=== PATIENT | female | born 1990 | race Caucasian/White ===

== ENCOUNTER → 2018-09-17 13:51 | Outpatient (CLI) | payer BC, SELFPAY ==
[2018-09-23 10:56] LABS: HPV Reflexed? NOT INDICATED
== END ==
PROVIDERS: Family Provider Family Medicine; PCP Family Medicine; Referring Provider Obstetrics & Gynecology; Visit Provider Obstetrics & Gynecology
DX: Z12.4 Encounter for screening for malignant neoplasm of cervix (principal)
CPT/HCPCS: 88175; G0145

== ENCOUNTER → 2020-10-06 15:01 | Outpatient (CLI) | payer OTHER, SELFPAY ==
[2019-12-14 08:56] VITALS: BMI 31.6
== END ==
PROVIDERS: PCP Family Medicine; Visit Provider Family Medicine
DX: B34.9 Viral infection, unspecified (principal)
CPT/HCPCS: 87635; U0003

== ENCOUNTER → 2020-10-18 16:12 | Outpatient (CLI) | payer OTHER, SELFPAY ==
[2019-12-14 08:56] VITALS: BMI 31.6
== END ==
PROVIDERS: PCP Family Medicine; Referring Provider Family Medicine; Visit Provider Family Medicine
DX: U07.1 COVID-19 (principal)
CPT/HCPCS: 87635; U0003

== ENCOUNTER → 2020-12-15 12:42 | Outpatient (CLI) | payer OTHER, SELFPAY ==
[2020-12-15 09:07] VITALS: BMI 33.7
[2020-12-19 16:21] LABS: HPV Reflexed? NOT INDICATED
== END ==
PROVIDERS: PCP Family Medicine; Referring Provider Obstetrics & Gynecology; Visit Provider Obstetrics & Gynecology
DX: Z12.4 Encounter for screening for malignant neoplasm of cervix (principal)
CPT/HCPCS: 88175; G0145

== ENCOUNTER → 2021-03-14 17:16 | Outpatient (CLI) | payer OTHER, SELFPAY ==
[2020-12-15 09:07] VITALS: BMI 33.7
--- NOTE | 2021-03-14 17:19 | RAD_ITS ---
STUDY: X-RAY - LEFT TIBIA AND FIBULA REASON FOR EXAM: Left ankle pain extending proximally into the left leg, fall 5 days ago. TECHNIQUE: 2 view(s) of the tibia and fibula were obtained. COMPARISON: None. FINDINGS: Normal visualized tibia. 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 There is soft tissue swelling at the ankle. RAD/Tibia & Fibula 2 Views IMPRESSION: Soft tissue swelling at the ankle. 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 Electronically Signed: Alexandr Strauss MD at 8:15 EDT Tel , Service support ,
--- NOTE | 2021-03-14 17:19 | RAD_ITS ---
STUDY: X-RAY - LEFT ANKLE REASON FOR EXAM: Left ankle/foot pain, left ankle injury from a fall 5 days ago with swelling and bruising. TECHNIQUE: 3 view(s) of the ankle. COMPARISON: None. FINDINGS: Normal visualized distal tibia. 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 Normal medial and lateral malleoli. Normal tibiotalar articulation and ankle mortise. Normal visualized talus and calcaneus. The visualized subtalar, talonavicular, calcaneocuboid and tarsal articulations are normal. There is soft tissue swelling, especially over the lateral malleolus. RAD/Ankle min 3 Views IMPRESSION: Soft tissue swelling. 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 No demonstrated fracture. Electronically Signed: Alexandr Strauss MD at 11:56 EDT Tel , Service support ,
== END ==
PROVIDERS: PCP Family Medicine; Referring Provider Family Medicine; Visit Provider Family Medicine
DX: M25.572 Pain in left ankle and joints of left foot (principal)
CPT/HCPCS: 73590; 73610

== ENCOUNTER 2021-12-07 16:13 | Outpatient (CLI) | payer OTHER, SELFPAY ==
[2021-12-07 16:37] LABS: Absolute Lymphocyte Count 2.45 X10^3/uL (0.83-4.51); Absolute Neutrophil Count 6.8 X10^3/uL (2.0-7.7); Basophil# 0.04 X10^3/uL; Basophil% 0.4 % (0-1); Eosinophil# 0.24 X10^3/uL; Eosinophils% 2.3 % (0-5); Hematocrit 41.3 % (37-47); Hemoglobin 14.6 g/dL (12.0-15.0); Lymphocyte # 2.45 X10^3/ul (0.83-4.51); Lymphocyte % 23.6 % (19-41); Mean Corp Hgb Conc 35.4 g/dL (32-36); Mean Corpuscular Hgb 31.9 pg (27.0-32.0); Mean Corpuscular Volume 90.2 fL (81-99); Mean Platelet Vol. 9.2 fl (6.2-12.0); Monocyte# 0.81 X10^3/uL; Monocyte% 7.8 % (0-10); NRBC Flagged by Analyzer 0 % (0-5); Neutrophil # 6.81 X10^3/uL (2.7-7.7); Neutrophil % 65.4 % (47-70); Platelet Count 352 K/mm3 (150-450); RBC Distribution Width CV 11.9 % (11.6-14.6); RBC Distribution Width SD 39.1 fl (35.1-43.9); Red Blood Count 4.58 M/mm3 (4.2-5.4); White Blood Count 10.4 K/mm3 (4.4-11.0)
[2021-12-07 17:21] LABS: Glucose Challenge Gest 1H 50g 105 mg/dL (70-140)
[2021-12-07 17:42] LABS: Amphetamine Urine VISTA NEGATIVE (<1000 ng/mL); Barbiturate Urine VISTA NEGATIVE (< 200 ng/mL); Benzodiazepine Urine VISTA NEGATIVE (< 200 ng/mL); Cocaine Urine VISTA NEGATIVE (< 300 ng/mL); Ecstacy Urine VISTA NEGATIVE (< 500 ng/mL); Methadone Urine VISTA NEGATIVE (< 300 ng/mL); PCP Urine VISTA NEGATIVE (< 25 ng/mL); THC Urine VISTA NEGATIVE (< 50 ng/mL); Vista UDS pH Range 6
[2021-12-08 07:32] LABS: HIV - WCH Non-Reactive (Nonreactive); Hepatitis B Surface Antigen Non-Reactive (Nonreactive); Hepatitis C Antibody Non-Reactive (Nonreactive); Rubella IgG Equiv (Nonreactive); Syphilis Antibodies Non-reactive
[2021-12-11 18:07] LABS: Chlamydia By Nucleic Acid AMP Negative (Negative)
[2021-12-11 18:40] LABS: Gonococcus By Nucleic Acid AMP Negative (Negative)
== END 2021-12-07 23:59 | disposition short-term general hospital (02) ==
LOC: LAB 16:14
PROVIDERS: PCP Family Medicine; Visit Provider Obstetrics & Gynecology
DX: Z34.90 Encounter for supervision of normal pregnancy, unspecified, unspecified trimester (principal)
CPT/HCPCS: 36415; 80307; 82950; 85025; 86703; 86762; 86780; 86803; 86850; 86900; 86901; 87086; 87088; 87340; 87491; 87591

== ENCOUNTER → 2022-04-26 | Outpatient (CLI) | payer OTHER, SELFPAY ==
[2022-04-26 14:26] LABS: Absolute Lymphocyte Count 1.91 X10^3/uL (0.83-4.51); Absolute Neutrophil Count 6.3 X10^3/uL (2.0-7.7); Basophil# 0.04 X10^3/uL; Basophil% 0.4 % (0-1); Eosinophil# 0.37 X10^3/uL; Eosinophils% 3.8 % (0-5); Hematocrit 33.3 % (37-47); Hemoglobin 11.5 g/dL (12.0-15.0); Lymphocyte # 1.91 X10^3/ul (0.83-4.51); Lymphocyte % 19.8 % (19-41); Mean Corp Hgb Conc 34.5 g/dL (32-36); Mean Corpuscular Hgb 31.6 pg (27.0-32.0); Mean Corpuscular Volume 91.5 fL (81-99); Mean Platelet Vol. 9.8 fl (6.2-12.0); Monocyte# 0.86 X10^3/uL; Monocyte% 8.9 % (0-10); NRBC Flagged by Analyzer 0 % (0-5); Neutrophil # 6.34 X10^3/uL (2.7-7.7); Neutrophil % 65.9 % (47-70); Platelet Count 270 K/mm3 (150-450); RBC Distribution Width CV 14.1 % (11.6-14.6); RBC Distribution Width SD 47.4 fl (35.1-43.9); Red Blood Count 3.64 M/mm3 (4.2-5.4); White Blood Count 9.6 K/mm3 (4.4-11.0)
[2022-04-26 14:58] LABS: Glucose Challenge Gest 1H 50g 88 mg/dL (70-140)
== END | disposition home or self-care (01) ==
LOC: LAB 13:32
PROVIDERS: PCP Family Medicine; Visit Provider Nurse Practitioner Women's Health
DX: Z13.1 Encounter for screening for diabetes mellitus (principal)
CPT/HCPCS: 36415; 82950; 85025

== ENCOUNTER → 2022-06-25 | Outpatient (CLI) | payer OTHER, SELFPAY | END | disposition home or self-care (01) | LOC: LABSPEC 06-26 09:24 | PROVIDERS: PCP Family Medicine; Referring Provider Nurse Practitioner Women's Health; Visit Provider Nurse Practitioner Women's Health | DX: Z34.90 Encounter for supervision of normal pregnancy, unspecified, unspecified trimester (principal) | CPT/HCPCS: 87081 ==

== ENCOUNTER 2022-07-23 07:22 | Inpatient (IN) | payer OTHER, SELFPAY ==
[2022-07-23] VITALS (81 sets, daily range): BP systolic 86–150; BP diastolic 51–86; PULSE 75–229; TEMP 36.1–36.9; O2SAT 76–100; BMI 36.3
[2022-07-23] MEDS: 0.9% Normal Saline Single 100 ML IV.SOLN. INTRA-UTER (07:59)
[2022-07-23] MEDS: Lactated Ringers 1,000 ML 50 ML IV (08:00)
[2022-07-23] MEDS: Oxytocin 30 units/NS 500 ml 30 UNITS/500 ML IV.SOLN IV (08:00)
[2022-07-23 08:04] LABS: Absolute Lymphocyte Count 2.11 X10^3/uL (0.83-4.51); Absolute Neutrophil Count 5.4 X10^3/uL (2.0-7.7); Basophil# 0.04 X10^3/uL; Basophil% 0.5 % (0-1); Eosinophil# 0.34 X10^3/uL; Eosinophils% 3.9 % (0-5); Hematocrit 35.1 % (37-47); Hemoglobin 12.3 g/dL (12.0-15.0); Lymphocyte # 2.11 X10^3/ul (0.83-4.51); Mean Corpuscular Hgb 31.8 pg (27.0-32.0); Mean Corpuscular Volume 90.7 fL (81-99); Mean Platelet Vol. 10.3 fl (6.2-12.0); Monocyte# 0.78 X10^3/uL; Monocyte% 8.9 % (0-10); NRBC Flagged by Analyzer 0 % (0-5); Neutrophil % 61.4 % (47-70); Platelet Count 206 K/mm3 (150-450); RBC Distribution Width CV 14.2 % (11.6-14.6); RBC Distribution Width SD 46.5 fl (35.1-43.9); Red Blood Count 3.87 M/mm3 (4.2-5.4); White Blood Count 8.8 K/mm3 (4.4-11.0)
[2022-07-23] MEDS: LACTATED RINGERS 500 ML 999 ML IV (12:01)
[2022-07-23] MEDS: fentaNYL-bupivacaine (epidural) 100 ML BAG EPIDURAL ×2 (13:12→18:21)
[2022-07-23] MEDS: Lactated Ringers 1,000 ML 200 ML IV (16:48)
--- NOTE | 2022-07-23 20:25 | HP.PCM.OB_ITS ---
HPI - General General Date of Admission: 07/23/22 HPI Narrative MARINA CORNELL, is a 32 F who presents for IOL sec postdates 41 weeks Maternal Data Information BRENDA Calculator Estimated Delivery Date Method Current WG Current Estimate 07/16/22 LMP (Certain) 41w 0d PFSH PFSH Medical History Anxiety Encounter for insertion of mirena IUD (~2014) Marginal placenta previa Home Medications loratadine 10 mg tablet (Claritin) 10 mg PO DAILY 09/17/18 [History Last Taken Unknown] multivitamin no.47-iron fum 27 mg-folate no.1 1 mg-dha 300 mg capsule (PNV-DHA) cap PO 11/21/21 [History Last Taken Unknown] sertraline 100 mg tablet 100 mg PO DAILY 90 days #90 tabs 12/08/21 [Rx Last Taken Unknown] breast pump #1 ea 07/02/22 [Rx Last Taken Unknown] Allergy/AdvReac Type Severity Reaction Status Date / Time No Known Allergies Allergy Verified 07/20/22 15:24 Family History Father Hyperlipemia Mother Hypertension Surgical History History of wisdom tooth extraction, class IV edentulism Social History adopted: No household members: spouse housing: house number of children: 0 current occupational status: employed current occupation: [employer] current occupational exposures/hazards: No pets and animals: No history of recent travel: No Smoking Status: Never smoker second hand exposure: No alcohol intake: current alcohol intake frequency: a few times a week substance use type: does not use caffeine: No what type of physical activity do you participate in: none seatbelt use: always do you feel safe at home: Yes additional social history: - [employer] Patient is communications strategist History 1 Elective abortions Hx Para 0 Spontaneous abortions Hx # Term Pregnancies Ectopic pregnancies Hx # Pregnancies Multiple births # of living children Visit Details Expected Delivery Route/Plan Labor Preferences- CB/BF classes: yes labor support person: Capo labor intervention preferences: [] pain management options preferred: epidural if needed cut cord/dad catch: cord : yes PP control planned: discussed IUD discussed possible routes of delivery and associated risks: [] special requests: [] Plans Covid status: vaccinated Flu vaccine: declined Tdap vaccine:given Rhogam: NA LARC form signed: yes movement and labor precautions reviewed. Problem list reviewed and updated with the most current plan of care details and appropriate orders placed. Relevant counseling for the gestational age provided. Continue routine care and follow up unless otherwise noted in visit notes/problem list details OB Flowsheet Initial Weight: Not Recorded Date -?-?-?-?-?-?-?-?-?-?-?-?- EGA Weight BP Urine Prot -?-?-?-?-?--?-?-?-?-?-?-?- Glucose FHR FuHt Pres Dilation -?-?-?-?-?-?-?-?-?-?-?--?- Effaced St Visit Note 12/07/21 -?-?-?-?-?-?-?-?-?-?-?-?- 8w 3d 205 lb 6 oz 110/80 -?-?-?-?-?-?-?-?-?-?-?-?- 160 -?-?-?-?-?-?-?-?-?-?-?-?- JV- crl consiste nt with LMP. FOB here and is deaf but reads lips. this is a genetic disorder that they have not decided on testing yet 01/05/22 -?-?-?-?-?-?-?-?-?-?-?-?- 12w 4d 204 lb 128/80 Negative -?-?-?-?-?-?-?-?-?-?-?-?- Negative 160 -?-?-?-?-?-?-?-?-?-?-?-?- SM- no vb britney ng declined genetic screening 02/02/22 -?-?-?-?-?-?-?-?-?-?-?-?- 16w 4d 205 lb 4 oz 110/70 Nega tive -?-?-?-?-?-?-?-?-?-?-?-?- Negative 150 -?-?-?-?-?-?-?-?-?-?-?-?- SM- no vb lof cr amping 03/02/22 -?-?-?-?-?-?-?-?-?-?-?-?- 20w 4d 206 lb 100/76 Negative -?-?-?-?-?-?-?-?-?-?-?-?- Negative 145 -?-?-?-?-?-?-?-?-?-?-?-?- JV- marginal pre via. rpt scan at 28 weeks 03/30/22 -?-?-?-?-?-?-?-?-?-?-?-?- 24w 4d 207 lb 90/62 -?-?-?-?-?-?-?-?-?-?-?-?- 145 -?-?-?-?-?-?-?-?-?-?-?-?- SM- no vb lof go od fm no reuglar ctx 04/26/22 -?-?-?-?-?-?-?-?-?-?-?-?- 28w 3d 213 lb 100/60 -?-?-?-?-?-?-?-?-?-?-?-?- 143 30 -?-?-?-?-?-?-?-?-?-?-?-?- MH-No VB, LOF. G ood FM. 28 wk labs, larc. Will consider tdap. 05/10/22 -?-?-?-?-?-?-?-?-?-?-?-?- 30w 3d 213 lb 6 oz 98/72 Nega tive -?-?-?-?-?-?-?-?-?-?-?-?- Negative 135 30 -?-?-?-?-?-?-?-?-?-?-?-?- JV- no loss of f veena, vaginal bleeding, or dec fm. 05/24/22 -?-?-?-?-?-?-?-?-?-?-?-?- 32w 3d 213 lb 91/65 -?-?-?-?-?-?-?-?-?-?-?-?- 140 32 -?-?-?-?-?-?-?-?-?-?-?-?- SM- no vb lof go od fm no regualr ctx having pupps lesions- medrol dose pack ordered 06/08/22 -?-?-?-?-?-?-?-?-?-?-?-?- 34w 4d 212 lb 2 oz 110/70 Nega tive -?-?-?-?-?-?-?-?-?-?-?-?- Negative 140 35 -?-?-?-?-?-?-?-?-?-?-?-?- SM- no vb lof go od fm no regular ctx still itching. 06/25/22 -?-?-?-?-?-?-?-?-?-?-?-?- 37w 0d 212 lb 107/75 Negative -?-?-?-?-?-?-?-?-?-?-?-?- Negative 149 37 Cephalic 1 -?-?-?-?-?-?-?-?-?-?-?-?- 30 -3 MH-NO Vb, LOF. Good FM. No CTX. GBS done 06/29/22 -?-?-?-?-?-?-?-?-?-?-?-?- 37w 4d 215 lb 106/78 Negative -?-?-?-?-?-?-?-?-?-?-?-?- Negative 140 38 Cephalic 1 -?-?-?-?-?-?-?-?-?-?-?-?- SM- no vb lof go od fm no regular ctx 07/06/22 -?-?-?-?-?-?-?-?-?-?-?-?- 38w 4d 210 lb 4 oz 129/78 Nega tive -?-?-?-?-?-?-?-?-?-?-?-?- Negative 136 Cephalic 1 -?-?-?-?-?-?-?-?-?-?-?-?- 60 -3 JV- no lof , vaginal bleeding, or dec fm. planning to have and sister in law in labor. 07/13/22 -?-?-?-?-?-?-?-?-?-?-?-?- 39w 4d 212 lb 104/80 Negative -?-?-?-?-?-?-?-?-?-?-?-?- Negative 135 39 Cephalic 1 .5 -?-?-?-?-?-?-?-?-?-?-?-?- 60 -2 SM- no vb lof good fm no regular ctx membranes swept discussed IOL 41. 07/20/22 -?-?-?-?-?-?-?-?-?-?-?-?- 40w 4d 209 lb 6 oz 106/70 Nega tive -?-?-?-?-?-?-?-?-?-?-?-?- Negative 135 40 Cephalic 1 .5 -?-?-?-?-?-?-?-?-?-?--?-?- 60 -2 SM- plan I OL 41 SM- plan IOL 41 no vb lof go od fm no regular ctx 07/23/22 -?-?-?-?-?-?-?-?-?-?-?-?- 41w 0d 212 lb 1.355 oz 110/ 57 106/74 113/80 115/73 147/74 118/76 119/82 125/86 124/85 127/75 128/80 114/70 119/67 118/69 129/77 86/52 88/51 117/72 97/58 102/65 108/74 107/68 120/77 108/57 100/59 -?-?-?-?-?-?-?-?-?--?-?-?- -?-?-?-?-?-?-?-?-?-?-?-?- NST FHR Rate Baby A Baseline: 130 Variability:: Moderate Accelerations:: 15 x 15 Decelerations:: None NST Reactive:: Yes FHR Category:: Category I Uterine Activity:: irregular ROS Constitutional Constitutional: Reports systems reviewed and no addt'l complaints, except as documented Eyes Eyes: Denies change in vision ENT HEENT: Reports systems reviewed and no addt'l complaints, except as documented; Denies headache(s) Cardiovascular Cardiovascular: Reports systems reviewed and no addt'l complaints, except as documented; Denies chest pain or dyspnea Respiratory/Chest Respiratory/Chest: Reports systems reviewed and no addt'l complaints, except as documented Gastrointestinal Gastrointestinal: Reports systems reviewed and no addt'l complaints, except as documented; Denies abdominal pain Genitourinary Genitourinary: Reports systems reviewed and no addt'l complaints, except as documented, contractions Details: present (irregular) and movement Details: present; Denies dysuria or genital lesions Musculoskeletal Musculoskeletal: Reports systems reviewed and no addt'l complaints, except as documented Neurologic Neurologic: Reports systems reviewed and no addt'l complaints, except as documented Endocrine Endocrinology: Reports systems reviewed and no addt'l complaints, except as documented Vital Signs Vital Signs Vital Signs: 07/23/22 07:46 07/23/22 07:46 07/23/22 07:46 Temperature Temperature Source Temporal Pulse Rate 98 Blood Pressure 110/57 L BP Systolic 110 BP Diastolic 57 Pulse Ox 07/23/22 07:46 07/23/22 09:08 07/23/22 09:08 Temperature 97.6 F L Temperature Source Pulse Rate 91 Blood Pressure 106/74 BP Systolic 106 BP Diastolic 74 Pulse Ox 07/23/22 10:14 07/23/22 10:14 07/23/22 11:08 Temperature Temperature Source Pulse Rate 84 Blood Pressure 113/80 115/73 BP Systolic 113 115 BP Diastolic 80 73 Pulse Ox 07/23/22 11:08 07/23/22 11:08 07/23/22 11:08 Temperature 97.3 F L Temperature Source Temporal Pulse Rate 116 H Blood Pressure BP Systolic BP Diastolic Pulse Ox 07/23/22 12:41 07/23/22 12:41 07/23/22 12:40 Temperature Temperature Source Pulse Rate 98 Blood Pressure 147/74 H BP Systolic 147 BP Diastolic 74 Pulse Ox 100 07/23/22 12:46 07/23/22 12:46 07/23/22 12:45 Temperature Temperature Source Pulse Rate 110 H Blood Pressure 118/76 BP Systolic 118 BP Diastolic 76 Pulse Ox 98 07/23/22 12:47 07/23/22 12:47 07/23/22 12:50 Temperature Temperature Source Pulse Rate 93 115 H Blood Pressure 119/82 H BP Systolic 119 BP Diastolic 82 Pulse Ox 07/23/22 12:50 07/23/22 12:51 07/23/22 12:51 Temperature Temperature Source Pulse Rate 111 H Blood Pressure 125/86 H BP Systolic 125 BP Diastolic 86 Pulse Ox 98 07/23/22 12:55 07/23/22 12:55 07/23/22 12:55 Temperature Temperature Source Pulse Rate 103 H Blood Pressure 124/85 H BP Systolic 124 BP Diastolic 85 Pulse Ox 97 07/23/22 13:00 07/23/22 13:00 07/23/22 13:02 Temperature Temperature Source Pulse Rate 108 H Blood Pressure 127/75 H BP Systolic 127 BP Diastolic 75 Pulse Ox 97 07/23/22 13:02 07/23/22 13:05 07/23/22 13:05 Temperature Temperature Source Pulse Rate 100 104 H Blood Pressure 128/80 H BP Systolic 128 BP Diastolic 80 Pulse Ox 07/23/22 13:05 07/23/22 13:05 07/23/22 13:11 Temperature Temperature Source Pulse Rate 107 H Blood Pressure 114/70 BP Systolic 114 BP Diastolic 70 Pulse Ox 98 07/23/22 13:11 07/23/22 13:10 07/23/22 13:15 Temperature Temperature Source Pulse Rate 103 H 96 Blood Pressure BP Systolic BP Diastolic Pulse Ox 99 07/23/22 13:15 07/23/22 13:15 07/23/22 13:16 Temperature Temperature Source Temporal Pulse Rate Blood Pressure 119/67 BP Systolic 119 BP Diastolic 67 Pulse Ox 99 07/23/22 13:16 07/23/22 13:15 07/23/22 13:21 Temperature 97.6 F L Temperature Source Pulse Rate 102 H Blood Pressure 118/69 BP Systolic 118 BP Diastolic 69 Pulse Ox 07/23/22 13:21 07/23/22 13:20 07/23/22 13:25 Temperature Temperature Source Pulse Rate 100 103 H Blood Pressure BP Systolic BP Diastolic Pulse Ox 99 07/23/22 13:25 07/23/22 13:31 07/23/22 13:31 Temperature Temperature Source Pulse Rate 96 Blood Pressure 129/77 H BP Systolic 129 BP Diastolic 77 Pulse Ox 99 07/23/22 13:30 08/22/22 13:35 07/23/22 13:35 Temperature Temperature Source Pulse Rate 92 Blood Pressure BP Systolic BP Diastolic Pulse Ox 99 99 07/23/22 13:40 07/23/22 13:40 07/23/22 13:45 Temperature Temperature Source Pulse Rate 100 92 Blood Pressure BP Systolic BP Diastolic Pulse Ox 99 07/23/22 13:45 07/23/22 13:50 07/23/22 13:50 Temperature Temperature Source Pulse Rate 86 Blood Pressure BP Systolic BP Diastolic Pulse Ox 100 100 07/23/22 13:55 07/23/22 13:55 07/23/22 14:00 Temperature Temperature Source Pulse Rate 101 H 93 Blood Pressure BP Systolic BP Diastolic Pulse Ox 99 07/23/22 14:00 07/23/22 14:04 07/23/22 14:04 Temperature Temperature Source Pulse Rate 83 Blood Pressure 86/52 L BP Systolic 86 BP Diastolic 52 Pulse Ox 100 07/23/22 14:05 07/23/22 14:05 07/23/22 14:05 Temperature Temperature Source Pulse Rate 92 Blood Pressure 88/51 L BP Systolic 88 BP Diastolic 51 Pulse Ox 100 07/23/22 14:10 07/23/22 14:10 07/23/22 14:11 Temperature Temperature Source Pulse Rate 93 Blood Pressure 117/72 BP Systolic 117 BP Diastolic 72 Pulse Ox 99 07/23/22 14:11 07/23/22 15:10 07/23/22 15:10 Temperature Temperature Source Pulse Rate 75 86 Blood Pressure 97/58 L BP Systolic 97 BP Diastolic 58 Pulse Ox 07/23/22 15:09 07/23/22 15:07 07/23/22 15:07 Temperature 97.4 F L Temperature Source Temporal Pulse Rate Blood Pressure BP Systolic BP Diastolic Pulse Ox 78 07/23/22 16:06 07/23/22 16:06 07/23/22 16:59 Temperature Temperature Source Temporal Pulse Rate 85 Blood Pressure 102/65 BP Systolic 102 BP Diastolic 65 Pulse Ox 07/23/22 16:59 07/23/22 16:59 07/23/22 16:59 Temperature 97.6 F L Temperature Source Pulse Rate 92 Blood Pressure 108/74 BP Systolic 108 BP Diastolic 74 Pulse Ox 07/23/22 17:50 07/23/22 17:50 07/23/22 18:51 Temperature Temperature Source Pulse Rate 85 Blood Pressure 107/68 120/77 BP Systolic 107 120 BP Diastolic 68 77 Pulse Ox 07/23/22 18:51 07/23/22 19:26 07/23/22 19:26 Temperature Temperature Source Pulse Rate 83 91 Blood Pressure 108/57 L BP Systolic 108 BP Diastolic 57 Pulse Ox 07/23/22 19:25 07/23/22 19:26 07/23/22 19:26 Temperature 97.3 F L Temperature Source Pulse Rate Blood Pressure BP Systolic BP Diastolic Pulse Ox 99 100 07/23/22 19:26 07/23/22 20:08 07/23/22 20:08 Temperature Temperature Source Temporal Pulse Rate 114 H Blood Pressure 100/59 L BP Systolic 100 BP Diastolic 59 Pulse Ox 07/23/22 20:08 07/23/22 20:08 Temperature 97.7 F L Temperature Source Temporal Pulse Rate Blood Pressure BP Systolic BP Diastolic Pulse Ox Weight Weight: 212 lb 1.355 oz Body Mass Index (BMI) 36.3 Physical Exam Const alert, oriented x3, no apparent distress and healthy appearing HEENT normocephalic and moist oral mucous membranes Head and Scalp: atraumatic Neck full ROM, no lymphadenopathy, supple and thyroid normal General: trachea midline Lymph Lymphatic: no lymphadenopathy noted Chest inspection of chest normal Resp normal respiratory effort Cardio regular rate GI normal to inspection, nondistended, normoactive bowel sounds, soft to palpation and non-tender Inspection: gravid external exam normal Manual OB Exam: estimated gestational size appropriate, presentation cephalic, dilated, effaced and station Extremity normal to inspection General Extremity: Negative for edema Skin no rashes or lesions noted Neuro no focal motor deficits and deep tendon reflexes 2+ bilaterally Motor Exam: strength 5/5 throughout and clonus absent Psych mental status grossly normal Labs Labs Labs: Blood Type B POSITIVE Antibody Screen NEGATIVE Hct 35.1 % (37-47) L Hgb 12.3 g/dL (12.0-15.0) Pap Smear Negative Syphilis Total Ab Non-reactive Rubella IgG Antibody Equiv (Nonreactive) Hep Bs Antigen Non-Reactive (Nonreactive) Chlamydia DNA ([place]) Negative (Negative) Neisseria gonorrhoeae DNA ([place]) Negative (Negative) HIV 1&2 Antibody Non-Reactive (Nonreactive) Glucose 1 Hr 50 gm 88 mg/dL (70-140) Assessment & Plan (1) PUPP (pruritic urticarial papules and plaques of ): COMMENT: medrol dose pack (2) Rubella non-immune status, antepartum: COMMENT: encourage MMR (3) SND (sensory-neural deafness), asymmetrical: COMMENT: this is in FOB. 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 if baby boy then they are not worried. (4) Supervision of normal : QUALIFIERS: Normal : normal first Trimester: third trimester Qualified Code(s): Z34.03 - Encounter for supervision of normal first , third trimester COMMENT: PRR BRENDA: 07/16/22 reshma Culver Spouse: [employer] (5) : QUALIFIERS: Weeks of gestation: 40 weeks Qualified Code(s): Z3A.40 - 40 weeks gestation of COMMENT: GBS negative, anatomy nl, declined genetic and carrier (6) BMI 31.0-31.9,adult: COMMENT: nl GCT at NOB (7) Anxiety and depression: COMMENT: increase zoloft to 100mg, counseling resources provided. if no improvement recommend change to celexa or prozac. behavioral techniques discussed. stable (8) Post-dates : PLAN: Plan Patient presents IOL, plan management for with pit fb arom. Pain management: plans epidural. GBS negative. Management of any complications: none I have reviewed the [facility] and made any clinically relevant updates.
[2022-07-23] MEDS: Oxytocin 30 units/NS 500 ml 30 UNITS/500 ML IV.SOLN 334 UNITS IV (21:07)
[2022-07-23] MEDS: Methylergonovine 0.2 MG/ML Ampul IM (21:10)
[2022-07-23] MEDS: Carboprost Tromethamine 250 MCG/ML Ampul IM (21:13)
[2022-07-23] MEDS: miSOPROStol 200 MCG Tablet 1000 MCG RC (21:23)
[2022-07-23] MEDS: 0.9% Saline Lock 10 ML Syringe IV ×2 (21:34→21:49)
--- NOTE | 2022-07-23 21:35 | EX.PCM.OBRPT ---
Assessment & Plan (1) Anxiety and depression: COMMENT: increase zoloft to 100mg, counseling resources provided. if no improvement recommend change to celexa or prozac. behavioral techniques discussed. stable (2) BMI 31.0-31.9,adult: COMMENT: nl GCT at NOB (3) : QUALIFIERS: Weeks of gestation: 40 weeks Qualified Code(s): Z3A.40 - 40 weeks gestation of COMMENT: GBS negative, anatomy nl, declined genetic and carrier (4) Supervision of normal : QUALIFIERS: Normal : normal first Trimester: third trimester Qualified Code(s): Z34.03 - Encounter for supervision of normal first , third trimester COMMENT: PRR BRENDA: 07/16/22 boy Abiola Spouse: Capo (5) SND (sensory-neural deafness), asymmetrical: COMMENT: this is in FOB. 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 if baby boy then they are not worried. (6) Rubella non-immune status, antepartum: COMMENT: encourage MMR (7) PUPP (pruritic urticarial papules and plaques of ): COMMENT: medrol dose pack (8) Post-dates : Maternal Data Information BRENDA Calculator Estimated Delivery Date Method Current WG Current Estimate 07/16/22 LMP (Certain) 41w 0d Vaginal Delivery Operative Information Date of Procedure: 07/23/22 Pre-Operative Diagnosis: IAL Post-Operative Diagnosis: same Surgery / Procedure Performed: Spontaneous Vaginal Delivery Type of Anesthesia: Epidural Special Medications: pitocin methergine hemabate cytotec TXA Estimated Blood Loss: 800 Fluids Replaced: crystalloid Findings Description of Procedure: Patient began pushing and delivered the head in the AYSE presentation. The head was delivered atraumatically and a loose nuchal cord ?1 was identified and the delivered through without complication. The anterior and posterior shoulders delivered without complication followed by the rest of the and the infant was placed on the maternal abdomen. Delayed cord clamping was employed for approximately 60 seconds. Cord was clamped and cut and gentle traction was applied to the cord and the placenta delivered spontaneously immediately following it was noted to be intact with three-vessel cord. The perineum and vagina were inspected and noted to have a second degree laceration repaired in the usual fashion with 3-0 rapide. uterine atony encountered, treated with bimanual massage, methergine, hemabate, cytotec, TXA, and total EBL was 800. Patient and infant tolerated delivery well. Presentation: AYSE Amniotic Membrane Rupture Type: Artificial Amniotic Fluid Description: Clear Placental Delivery Description: Spontaneous Placenta Disposition: [facility] Cord Vessel Description: 3 Vessels Cord Entanglement: Around neck x 1, loose A Gender: Male Delayed Cord Clamping: Yes Post Vaginal Delivery Medications Given After Delivery: IV Pitocin, IM Methergin and IM Hemabate Episiotomy Description: None Laceration: Perineal Extension/lac and 2nd degree Complication Complications: - (mild hemorrhage) Procedures Urinary/Genital [id number]: [id number] Vaginal Delivery [facility]
--- NOTE | 2022-07-23 21:38 | DCINST_ITS ---
Discharge Instructions Diet Discharge Diet: No restrictions Activity Discharge Activity: Return to Normal Activity, May Drive, May Shower and May Take a Tub Bath (in 4 weeks) May resume sexual activity in: 6-8 weeks (after seen by OB provider) Weight Bearing Status: Full weight bearing Lifting Restrictions: none Dressing / Incision Call your doctor if you observe: Fever of 101 or Higher, Inability to urinate, Using more than 1 pad per hour (for more than 2 hours in a row or more), Shortness of breath, Dizziness, Chest pain and - (headache not controlled with tylenol, change in vision) Follow Up Care When: in 6 weeks for visit, call the office to make the appointment. If you had elevated blood pressures call the office to be seen within 1 week. Test Results: Test results from this visit will be discussed in further detail at your follow- up appointment, if applicable. Discharge Plan Admission Admit Date/Time: 07/23/22 07:22 Attending Provider: Rosa Calero Primary Care Provider: Reji Schmidt Discharge Orders/Prescriptions Prescriptions: No Action loratadine [Claritin] 10 mg tablet 10 mg PO DAILY PNV-DHA 27 mg iron-1 mg -300 mg capsule PO sertraline 100 mg tablet 100 mg PO DAILY 90 Days Qty: 90 4RF (DME) breast pump Device See Rx Instructions .ROUTE .MEDSUPPLY Qty: 1 0RF Rx Instructions: As directed Referrals / Follow Up: Reji Schmidt MD [Primary Care Provider] - Disposition Disposition (needs filled in before D/C Order can be placed): Home, Self Care
[2022-07-24] MEDS: Benzocaine/Lanolin/Aloe Vera 1 SPRAY EACH TOPICAL (00:03)
[2022-07-24] MEDS: 0.9% Saline Lock 10 ML Syringe IV (00:03)
[2022-07-24] MEDS: Naproxen 500 MG Tablet PO ×3 (00:04→15:51)
[2022-07-24 04:10] VITALS: BP 99/67; PULSE 83; RESP 16; TEMP 36.5
[2022-07-24] MEDS: Acetaminophen 500 MG Tablet 1000 MG PO ×2 (04:11→10:32)
[2022-07-24 04:41] LABS: Absolute Lymphocyte Count 1.78 X10^3/uL (0.83-4.51); Absolute Neutrophil Count 22.7 X10^3/uL (2.0-7.7); Basophil# 0.05 X10^3/uL; Basophil% 0.2 % (0-1); Eosinophil# 0.02 X10^3/uL; Eosinophils% 0.1 % (0-5); Hematocrit 31.8 % (37-47); Hemoglobin 11.1 g/dL (12.0-15.0); Lymphocyte # 1.78 X10^3/ul (0.83-4.51); Lymphocyte % 6.8 % (19-41); Mean Corp Hgb Conc 34.9 g/dL (32-36); Mean Corpuscular Hgb 31.8 pg (27.0-32.0); Mean Corpuscular Volume 91.1 fL (81-99); Mean Platelet Vol. 10.4 fl (6.2-12.0); Monocyte# 1.36 X10^3/uL; Monocyte% 5.2 % (0-10); NRBC Flagged by Analyzer 0 % (0-5); Neutrophil # 22.69 X10^3/uL (2.7-7.7); Neutrophil % 86.9 % (47-70); POSITIVE DIFFERENTIAL YES; Platelet Count 178 K/mm3 (150-450); RBC Distribution Width CV 14.1 % (11.6-14.6); RBC Distribution Width SD 46.5 fl (35.1-43.9); Red Blood Count 3.49 M/mm3 (4.2-5.4); White Blood Count 26.1 K/mm3 (4.4-11.0)
[2022-07-24 04:43] LABS: Differential Indicated SCAN CRITERIA MET
[2022-07-24 07:57] VITALS: BP 94/58; PULSE 79; RESP 15; TEMP 36.6
--- NOTE | 2022-07-24 08:33 | PCM.PN.OB ---
Subjective Subjective Patient doing well without complaints. Tolerating PO. Ambulating and voiding without difficulty. Feeding well. Denies chest pain, shortness of breath, calf pain/swelling, fevers, chills, lightheadedness. Objective Data Objective Data Vital Signs: Vital Signs Temp Pulse Resp BP Pulse Ox O2 Del Method 98 F 79 15 94/58 L 98 Room Air 07/24/22 07:57 07/24/22 07:57 07/24/22 07:57 07/24/22 07:57 07/23/22 23:21 07/24/22 04:10 Oxygen Delivery Method Room Air Weight: 212 lb 1.355 oz Body Mass Index (BMI) 36.3 Intake & Output: Intake and Output for Last 24 Hours 07/22/22 07/23/22 07/24/22 23:59 23:59 23:59 Intake Total 3217.43 / 3217.43 949.7 / 949.7 Output Total 1200 / 1200 1450 / 1450 Balance 43 / 43 -500.3 / -500.3 Lab / Micro Data Result Diagrams: 07/24/22 04:15 Labs: Laboratory Results - last 24 hr 07/23/22 07:40: Blood Type B POSITIVE, Antibody Screen NEGATIVE 07/24/22 04:15: WBC 26.1 H, RBC 3.49 L, Hgb 11.1 L, Hct 31.8 L, MCV 91.1, MCH 31.8, MCHC 34.9, RDW Std Deviation 46.5 H, RDW Coeff of Pearl 14.1, Plt Count 178, MPV 10.4, Immature Gran % (Auto) 0.800, Neut % (Auto) 86.9 H, Lymph % (Auto) 6.8 L, [place] % (Auto) 5.2, Eos % (Auto) 0.1, Baso % (Auto) 0.2, Absolute Neuts (auto) 22.7 H, Absolute Lymphs (auto) 1.78, Nucleated RBC % 0 Micro: Microbiology 07/23/22 08:05 Nasal Secretion SARS-CoV-2 Antigen (Rapid) - Final ROS Constitutional Constitutional: Denies chills, fatigue, fever(s), poor appetite or weakness Eyes Eyes: Denies blurry vision, change in vision, seeing flashes or spots in vision ENT HEENT: Denies dizziness, headache(s), loss taste/smell or sore throat Cardiovascular Cardiovascular: Denies chest pain, dizziness, dyspnea, irregular heart rhythm, palpitations or rapid heart rate Respiratory/Chest Respiratory/Chest: Denies chest tightness, cough, dyspnea or breast pain Gastrointestinal Gastrointestinal: Denies abdominal pain, constipation or vomiting Genitourinary Genitourinary: Denies dysuria or flank pain Musculoskeletal Musculoskeletal: Denies difficulty walking, joint pain, limited range of motion or numbness Neurologic Neurologic: Denies abnormal movements, abnormal speech, dizziness, numbness, seizure-like activity or syncope Psychiatric Psychiatric: Denies anxiety, behavioral changes, change in appetite, confusion, depression or suicidal thoughts Physical Exam Const alert, oriented x3 and no apparent distress General Appearance: cooperative and comfortable Resp normal respiratory effort Cardio regular rate GI normal to inspection, nondistended, normoactive bowel sounds GI Narrative: uterus is firm below umbilicus Palpation: soft Back/Spine no CVA tenderness and thoraco-lumbar ROM normal Extremity normal to inspection, no clubbing, cyanosis or edema, no calf tenderness and no pedal edema Psych mental status grossly normal, thought process normal, cooperative, affect normal, speech normal, activity/motor behavior normal, denies homicidal ideation and denies suicidal ideation Assessment & Plan (1) Rubella non-immune status, antepartum: COMMENT: encourage MMR (2) Vaginal delivery: COMMENT: SM IOL 41 boy danica PPH 800cc (3) atony of uterus with hemorrhage: PLAN: Plan s/p PPD # 1 1. routine post delivery care 2. breast feeding- support given 3. rh positive 4. rubella non-immune- plan for vaccine before discharge 5. will rpt cbc tomorrow
--- NOTE | 2022-07-24 10:22 | NURSING ---
1005 education on donor milk supplementation; plan of care is to attempt and then supplement after with 10-15 cc
[2022-07-24] MEDS: Sertraline 100 MG Tablet PO (10:33)
[2022-07-24] MEDS: Loratadine 10 MG Tablet PO (10:33)
[2022-07-24 13:11] VITALS: BP 90/49; PULSE 90; RESP 14; TEMP 36.9
[2022-07-24 15:40] VITALS: BP 102/67; PULSE 99; RESP 16; TEMP 36.6
[2022-07-24 19:55] VITALS: BP 102/66; PULSE 91; RESP 16; TEMP 37.3; O2SAT 98
[2022-07-24] MEDS: Senna/Docusate Sodium 1 Tablet PO (21:08)
[2022-07-25 01:15] VITALS: BP 107/64; PULSE 103; RESP 18; TEMP 36.9
[2022-07-25 05:15] LABS: Hematocrit 26.5 % (37-47); Hemoglobin 9.1 g/dL (12.0-15.0); Mean Corp Hgb Conc 34.3 g/dL (32-36); Mean Corpuscular Hgb 31.7 pg (27.0-32.0); Mean Corpuscular Volume 92.3 fL (81-99); Platelet Count 205 K/mm3 (150-450); RBC Distribution Width CV 14.6 % (11.6-14.6); RBC Distribution Width SD 48.3 fl (35.1-43.9); Red Blood Count 2.87 M/mm3 (4.2-5.4); White Blood Count 16.8 K/mm3 (4.4-11.0)
--- NOTE | 2022-07-25 08:12 | PCM.PN.OB ---
Subjective Subjective Patient doing well without complaints. Tolerating PO. Ambulating and voiding without difficulty. Feeding well. Denies chest pain, shortness of breath, calf pain/swelling, fevers, chills, lightheadedness. Objective Data Objective Data Vital Signs: Vital Signs Temp Pulse Resp BP Pulse Ox O2 Del Method 98.4 F 103 H 18 107/64 98 Room Air 07/25/22 01:15 07/25/22 01:15 07/25/22 01:15 07/25/22 01:15 07/24/22 19:55 07/24/22 19:55 Oxygen Delivery Method Room Air Weight: 212 lb 1.355 oz Body Mass Index (BMI) 36.3 Intake & Output: Intake and Output for Last 24 Hours 07/23/22 07/24/22 07/25/22 23:59 23:59 23:59 Intake Total 3217.43 / 3217.43 949.7 / 949.7 Output Total 1200 / 1200 1450 / 1450 Balance 2017.43 / 2017.43 -500.3 / -500.3 Lab / Micro Data Result Diagrams: 07/25/22 05:10 Labs: Laboratory Results - last 24 hr 07/25/22 05:10: WBC 16.8 H, RBC 2.87 L, Hgb 9.1 L, Hct 26.5 L, MCV 92.3, MCH 31.7, MCHC 34.3, RDW Std Deviation 48.3 H, RDW Coeff of Pearl 14.6, Plt Count 205, MPV 10.0 Micro: Microbiology 07/23/22 08:05 Nasal Secretion SARS-CoV-2 Antigen (Rapid) - Final Physical Exam Const alert and oriented x3 HEENT normocephalic Eyes PERRL Neck full ROM Resp normal respiratory effort GI soft to palpation GI Narrative: FF below U Assessment & Plan (1) Vaginal delivery: COMMENT: SM IOL 41 boy danica PPH 800cc (2) Rubella non-immune status, antepartum: COMMENT: encourage MMR (3) atony of uterus with hemorrhage: PLAN: Plan s/p PPD # 2 1. routine post delivery care 2. breast feeding- support given 3. rh positive 4. rubella nonimmune 5. home today
[2022-07-25 08:25] VITALS: BP 118/73; PULSE 76; RESP 16; TEMP 36.1; O2SAT 98
[2022-07-25] MEDS: Sertraline 100 MG Tablet PO (10:08)
[2022-07-25] MEDS: Senna/Docusate Sodium 1 Tablet PO (10:36)
--- NOTE | 2022-07-25 11:15 | CASEMGMT ---
Social Work Consult received for history of mental health. Chart reviewed. Presented to patient's room, and found the patient in the bathroom and the father of baby (FOB) sitting in on bedside couch next to the baby who was in the crib. Introduced to self and social work role. FOB indicated that patient may be in the bathroom for a little while yet. FOB reported the patient may be discharged but will not be be leaving the hospital yet as the baby is not yet ready for discharge. This policy writer explained will attempt to come back later today as able, and if not today tomorrow. -CINTIA Sood, PRODUCTION PLANNING SUPERVISOR *This note was generated with [employer] dictation software. It may contain incorrect words, spelling, and punctuation that were not noted in review of the chart prior to signing*
[2022-07-25 14:30] VITALS: BP 117/80; PULSE 86; RESP 16; TEMP 36.7
[2022-07-25] MEDS: Loratadine 10 MG Tablet PO (14:33)
[2022-07-25] MEDS: Naproxen 500 MG Tablet PO (14:33)
--- NOTE | 2022-07-26 09:50 | CASEMGMT ---
Social Work Brief Assessment Labor and Delivery Unit Patient Address: [address] [place] [address] [address], [place] [id number] Phone number: [phone] Date of Referral/Notification: 07/24/2022 Time of Referral: 21 Referred By: Dr. Kaleb Menard Date of Intervention: 07/26/2022 Time of Intervention: Approximately 5596-7142 Reason for Referral: Maternal history of mental health Informant: Medical record and mother of baby (MOB) Fannie Freitas; father of baby (FOB) Capo Freitas present for part of conversation. History: MOB is a 32-year-old female, to the FOB. During private conversation with the MOB, MOB denied any type of abuse, control, or intimidation in the relationship with the FOB. 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 FOB works as a mechanical expert. care for this started at 8 weeks and normal thereafter. Baby reshma Culver was born on 07/23/2022. weight 9 pounds 13 ounces. Apgars 5 and 7. MOB is 1, para 0 now 1 after delivering the infant. [place] is the first child for both parents. MOB does endorse a history of depression and anxiety which has been exacerbated by situational stressors. Denies any history of suicidal or homicidal ideation, intent or attempts. MOB is treated with Zoloft, and reports this works well. [place] depression screen completed this date with a score of 8 which does fall below the threshold for any current depression or anxiety. MOB and FOB both deny any history or concerns of substance use issues. MOB had a negative drug screen done preliminarily on 12/07/2021. Assessment: Met with MOB and FOB in room, introducing to self and social work role. Both MOB and FOB pleasant, cooperative, and receptive to social work visit. MOB with good eye contact, full affect, and mood congruent to content being discussed. MOB and FOB voiced being happy about having the baby. For the time the FOB was in the room, FOB was engaged in conversation, presenting as supportive of the MOB. During private conversation with the MOB, MOB indicated the FOB is a good support. Additional support from family who are local. FOB does get to take time off of work to assist with transition home. MOB and FOB deny any concerns with housing, transportation, or ability to make/meet basic needs. It is reported that necessary supplies for the baby are in place including a safe sleep space and car seat. Educated MOB and FOB to mood and anxiety disorders, risk factors, and that both mothers and fathers are both at risk for this. MOB does report intent to remain on antidepressant medication. MOB and FOB excepted information on mood and anxiety disorders, resources, and counseling options if needed for the future. MOB and FOB both have awareness of safe sleeping and shaken baby prevention. There have been no voiced concerns regarding parent-child interactions or bonding during this hospital stay. Plan: MOB and will discharge home when medically stable. Resources have been provided for home-going related to mood and anxiety disorders. Information was also given for local resources including help me grow. No further needs requested or indicated. -NAPOLEON Sood, JOSE *This note was generated with [employer] dictation software. It may contain incorrect words, spelling, and punctuation that were not noted in review of the chart prior to signing*
== END 2022-07-25 18:57 | disposition home or self-care (01) | DRG 806 ==
PROVIDERS: Obstetrics & Gynecology; Admitting Provider Obstetrics & Gynecology; PCP Family Medicine; Referring Provider Obstetrics & Gynecology; Visit Provider Obstetrics & Gynecology
DX: O48.0 Post-term pregnancy (principal); Z37.0 Single live birth; O72.1 Other immediate postpartum hemorrhage; F41.9 Anxiety disorder, unspecified; O26.86 Pruritic urticarial papules and plaques of pregnancy (PUPPP); F32.A Depression, unspecified; O99.344 Other mental disorders complicating childbirth; H90.5 Unspecified sensorineural hearing loss; O70.1 Second degree perineal laceration during delivery; Z3A.41 41 weeks gestation of pregnancy; O69.81X0 Labor and delivery complicated by cord around neck, without compression, not applicable or unspecified; Z28.39 Other underimmunization status
CPT/HCPCS: 59025; 59050; 85025; 85027; 86850; 86900; 86901; 87426; 99218; J7120; A4216; G0378

== ENCOUNTER → 2022-12-07 | Outpatient (CLI) | payer OTHER, SELFPAY ==
--- NOTE | 2022-12-07 13:02 | US_ITS ---
STUDY: ULTRASOUND OF THE FEMALE PELVIS - COMPLETE REASON FOR EXAM: Female, 32 years old. IUD PLACEM LMP: Unknown TECHNIQUE: Transabdominal and Transvaginal TECHNICAL QUALITY: Adequate. COMPARISON: None. FINDINGS: The uterus is retroverted and is in a midline position. The uterus measures 7.5 cm x 6.4 cm x 4.6 cm. Normal uterine cervix. The endometrium measures 6 mm in thickness, and is hyperechoic. There is no demonstrated endometrial mass. There is no demonstrated myometrial mass. I.U.D. - The patient does have an I.U.D. The right ovary is visualized. The right ovary measures 3.1 cm x 2.1 cm x 2.1 cm. Small follicles are seen within it. There is no visualized right adnexal mass or complex lesion. There is normal arterial and normal venous vascularity. The left ovary is visualized. The left ovary measures 2.9 cm x 1.8 cm x 1.7 cm. There is no left ovarian cyst or ovarian mass. There is no visualized left adnexal mass or complex lesion. There is normal arterial and normal venous vascularity. There is no fluid in the cul-de-sac. The pre void volume of the bladder was 269 ml. US/Pelvic (Non ) IMPRESSION: IUD seen within the endometrium. Dominant follicle is seen in the right ovary. Electronically Signed: Tomás Peck MD at 14:22 EST ,
== END | disposition home or self-care (01) ==
LOC: US 12:58
PROVIDERS: PCP Family Medicine; Referring Provider Obstetrics & Gynecology; Visit Provider Obstetrics & Gynecology
DX: R10.2 Pelvic and perineal pain (principal)
CPT/HCPCS: 76830; 76856

== ENCOUNTER → 2024-01-02 | Outpatient (CLI) | payer BC, SELFPAY ==
[2024-01-02 17:11] LABS: Absolute Lymphocyte Count 2.92 X10^3/uL (0.83-4.51); Absolute Neutrophil Count 5.4 X10^3/uL (2.0-7.7); Basophil# 0.06 X10^3/uL; Basophil% 0.6 % (0-1); Eosinophil# 0.44 X10^3/uL; Eosinophils% 4.7 % (0-5); Hemoglobin 14.6 g/dL (12.0-15.0); Lymphocyte # 2.92 X10^3/ul (0.83-4.51); Lymphocyte % 30.9 % (19-41); Mean Corp Hgb Conc 33.2 g/dL (32-36); Mean Corpuscular Hgb 30.9 pg (27.0-32.0); Mean Platelet Vol. 9.2 fl (6.2-12.0); Monocyte# 0.63 X10^3/uL; Monocyte% 6.7 % (0-10); NRBC Flagged by Analyzer 0 % (0-5); Neutrophil # 5.37 X10^3/uL (2.7-7.7); Neutrophil % 56.7 % (47-70); Platelet Count 376 K/mm3 (150-450); RBC Distribution Width CV 12.2 % (11.6-14.6); RBC Distribution Width SD 42.1 fl (35.1-43.9); Red Blood Count 4.73 M/mm3 (4.2-5.4); White Blood Count 9.5 K/mm3 (4.4-11.0)
[2024-01-02 18:20] LABS: Thyroid Stim Hormone (TSH) 0.99 uIU/mL (0.358-3.74)
== END | disposition home or self-care (01) ==
PROVIDERS: PCP Family Medicine; Referring Provider Advanced Practice Midwife; Visit Provider Advanced Practice Midwife
DX: Z01.419 Encounter for gynecological examination (general) (routine) without abnormal findings (principal); N89.8 Other specified noninflammatory disorders of vagina
CPT/HCPCS: 36415; 84443; 85025; 87070; 87205

== ENCOUNTER → 2025-04-13 | Outpatient (CLI) | payer BC, SELFPAY ==
[2025-04-16 10:08] LABS: HPV APTIMA, High Risk Negative (Negative)
== END | disposition home or self-care (01) ==
LOC: LABSPEC 15:40
PROVIDERS: PCP Family Medicine; Referring Provider Advanced Practice Midwife; Visit Provider Advanced Practice Midwife
DX: N89.8 Other specified noninflammatory disorders of vagina (principal); Z12.4 Encounter for screening for malignant neoplasm of cervix
CPT/HCPCS: 87070; 87205; 87624; 88175; G0145